=== PATIENT | male | born 1940 | race Caucasian/White ===

== ENCOUNTER 2022-01-21 08:57 | Emergency (ER) | payer MEDICARE, OTHER ==
--- NOTE | 2022-01-21 08:59 | ERPHSYRPT ---
- History of Present Illness Time Seen by Provider: 01/21/22 08:59 Source: patient, family Exam Limitations: no limitations Physician History: This is an 82-year-old white male patient that denies smoking history who states that there is something in his throat on the right side that is causing him pain. The pain is worse when he is swallowing either liquids or solid foods. Onset was a couple days ago. He has had no difficulty breathing. He does have control of his airway. Patient has a history of elevated cholesterol, hypertension, arthritis and gastroesophageal reflux disease. Timing/Duration: persistent, days (2) Severity: moderate ENT Location: throat Modifying Factors: Improves With: other (Worse with swallowing) Associated Symptoms: difficulty swallowing (Not too difficult swallowing but has painful swallowing), No drooling, No ear drainage, No hearing loss, No voice change Allergies/Adverse Reactions: acetaminophen [From Vicodin] Allergy (Verified 01/21/22 09:02) hydrocodone bitartrate [From Vicodin] Allergy (Verified 01/21/22 09:02) Home Medications: Aspirin 81 mg PO DAILY 09/19/14 [History] Metformin HCl 500 mg [Glucophage 500 MG] 500 mg PO BID 09/19/14 [History] Alendronate Sodium 70 mg [Fosamax 70 MG] 70 mg PO WEEKLY 08/12/20 [History] Ergocalciferol (Vitamin D2) [Vitamin D2] 1,250 mcg PO HS 08/12/20 [History] Folic Acid 1 mg [Folate 1 mg] 1 mg PO DAILY 08/12/20 [History] Hydrocodone/Acetaminophen [Hydrocodon-Acetaminophen 5-325] 1 each PO Q4-6HPRN PRN 08/12/20 [History] Losartan Potassium 100 mg PO DAILY 08/12/20 [History] Methotrexate Sodium/Pf [Methotrexate 25 mg/ml Vial] 25 mg IJ WEEKLY 08/12/20 [History] Metoprolol Succinate 12.5 mg PO BID 08/12/20 [History] Omeprazole 40 mg PO DAILY PRN PRN 08/12/20 [History] Prednisone 20 mg [Deltasone 20 mg] 20 mg PO DAILY 08/12/20 [History] Rosuvastatin Calcium 20 mg PO DAILY 01/20/21 [History] Travel Risk - International Travel Have you traveled outside of the country in past 3 weeks: No - Coronavirus Screening Are you exhibiting any of the following symptoms?: No Close contact with a COVID-19 positive Pt in past 14-21 Days: No - Review of Systems Constitutional: No Symptoms Eyes: No Symptoms Ears, Nose, & Throat: Throat Pain, Painful Swallowing, No Hoarse, No Snoring Respiratory: No Symptoms Cardiac: No Symptoms Abdominal/Gastrointestinal: No Symptoms Genitourinary Symptoms: No Symptoms Musculoskeletal: No Symptoms Skin: No Symptoms Neurological: No Symptoms Psychological: No Symptoms Endocrine: No Symptoms Hematologic/Lymphatic: No Symptoms Immunological/Allergic: No Symptoms All Other Systems: Reviewed and Negative - Past Medical History Pertinent Past Medical History: Yes Neurological History: No Pertinent History ENT History: No Pertinent History Cardiac History: Hypertension Respiratory History: No Pertinent History Endocrine Medical History: Diabetes Type II Musculoskeletal History: No Pertinent History GI Medical History: Gallbladder Disease History: No Pertinent History Psycho-Social History: No Pertinent History Male Reproductive Disorders: No Pertinent History - Past Surgical History Past Surgical History: Yes Neuro Surgical History: No Pertinent History Cardiac: Cardiac Catheterization Respiratory: No Pertinent History Gastrointestinal: Other Genitourinary: No Pertinent History Musculoskeletal: No Pertinent History, Other Male Surgical History: No Pertinent History Other Surgical History: hx fractured left hip and pelvis with screws,colonoscopyx2 - Social History Smoking Status: Former smoker Exposure to second hand smoke: No Drug Use: none - Nursing Vital Signs Nursing Vital Signs: Initial Vital Signs Temperature 98.9 F 01/21/22 09:03 Pulse Rate 84 01/21/22 09:03 Respiratory Rate 18 01/21/22 09:03 Blood Pressure 160/85 01/21/22 09:03 O2 Sat by Pulse Oximetry 96 01/21/22 09:03 Pain Scale Pain Intensity 0 - Physical Exam General Appearance: no apparent distress, alert Eye Exam: bilateral eye: normal inspection, PERRL, EOMI Ear Exam: bilateral ear: auricle normal, canal normal, TM normal Nasal Exam: normal inspection Throat Exam: moist mucus membranes, pharynx swelling, pharynx tenderness (With redness and fibrinous exudate right side worse than left), uvula swelling, No dental tenderness, No excessive drooling Neck Exam: normal inspection, non-tender, supple, full range of motion, trachea midline Cardiovascular/Respiratory Exam: chest non-tender, normal breath sounds, regular rate/rhythm, heart sounds normal, no ecchymosis, no JVD, no respiratory distress, normal peripheral pulses, No subcutaneous emphysema Abdominal Exam: non-tender Neurologic Exam: alert, oriented x 3, cooperative, 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, normal mood/affect, nml cerebellar function, nml station & gait, sensation nml Skin Exam: normal color, warm, dry SpO2 Interpretation: normal O2 Delivery: Room Air - Course Nursing assessment & vital signs reviewed: Yes Ordered Tests: Active Orders 24 hr Category Date Time Status NECK WO CONTRAST [CT] Stat Exams 01/21/22 09:19 Completed Medication Summary Discontinued Medications Generic Name Dose Route Start Last Admin Trade Name Freq PRN Reason Stop Dose Admin Hydrocodone Bitart/Acetaminophen 10 ml 01/21/22 10:21 Hydrocodone/Acetaminophen 5 Ml Udcup PO 01/21/22 10:22 STAT STA Hydrocodone Bitart/Acetaminophen Confirm 01/21/22 10:34 Hydrocodone/Acetaminophen 5 Ml Udcup Administered 01/21/22 10:35 Dose 10 ml .ROUTE .STK-MED ONE Ceftriaxone Sodium 1,000 mg 01/21/22 10:21 01/21/22 10:40 Ceftriaxone Sodium 1000 Mg Inj Vial IM 01/21/22 10:22 1,000 mg STAT ONE Administration Ceftriaxone Sodium Confirm 01/21/22 10:34 Ceftriaxone Sodium 1000 Mg Inj Vial Administered 01/21/22 10:35 Dose 1,000 mg .ROUTE .STK-MED ONE Methylprednisolone Sodium 0 mg 01/21/22 10:21 01/21/22 10:40 Succinate 125 mg/ Sterile IM 01/21/22 10:22 125 mg Water 2 ml STAT ONE Administration Diphenhydramine HCl Confirm 01/21/22 10:50 Diphenhydramine Hcl 50 Mg/Ml Vial Administered 01/21/22 10:51 Dose 50 mg .ROUTE .STK-MED ONE Methylprednisolone Sodium Succinate Confirm 01/21/22 10:34 Methylprednis Sod Succ 125 Mg/2 Ml Vial Administered 01/21/22 10:35 Dose 125 mg .ROUTE .STK-MED ONE Sterile Water Confirm 01/21/22 10:34 Water For Injection,Sterile 10 Ml Vial Administered 01/21/22 10:35 Dose 10 ml IJ .STK-MED ONE Lab/Rad Data: Laboratory Results 01/21/22 01/21/22 Range/Units 09:29 09:29 Influenza Type A Ag NEGATIVE (NEGATIVE) Influenza Type B Ag NEGATIVE (NEGATIVE) RSV (PCR) NEGATIVE (Negative) SARS-CoV-2 (PCR) NEGATIVE (NEGATIVE) Group A Strep Antibody NOT DETECTED (NEGATIVE) - Progress Progress: improved, pain not gone completely, re-examined Progress Note: 01/21/22 10:22 40 years ago the patient had Vicodin and had a reaction that was a rash and they attributed it to the Vicodin. However, since that time patient has had hydrocodone/acetaminophen combination without any side effects or allergic reactions. 01/21/22 11:06 Patient just took 5 cc of liquid hydrocodone/acetaminophen. He feels as though it went down the trachea rather than the esophagus. He began coughing. He is now improved. His oxygen saturations are now significantly improved and he is coughing less often. There is no evidence of rash. There is no stridor and there is no wheezing present. Medical decision making: This patient underwent a CT scan without contrast of the neck/soft tissue of the neck and it shows moderate asymmetric soft tissue prominence/swelling within the right posterior oropharynx GL region near the tonsillar pillar. This prominence is either soft tissue swelling from infection versus an underlying mass. It is difficult to tell from this study. We will observe the patient a little longer in the emergency department and in the meantime attempt to obtain an ENT appointment for him. Counseled pt/family regarding: lab results, diagnosis, need for follow-up, rad results - Departure Clinical Impression: Pharyngitis, Oropharyngeal dysphagia Condition: Stable Critical Care Time: No Referrals: ASPEN QUIJANO MD [Primary Care Provider] - Follow up/PCP as directed Additional Instructions: Drink plenty of cool liquids. Take your medication as prescribed. Follow-up with your primary care physician and search manager for further evaluation and management. Return to emergency room if symptoms worsen. Prescriptions: Hydrocodone/APAP 5/325 [[place] 5/325 mg] 1 each PO Q8H PRN PRN #8 tablet MDD 3 PRN Reason: Pain Prednisone 10 mg [Deltasone 10 mg] 10 mg PO TID #12 tablet Azithromycin 250 mg [Zithromax 250 MG TABLET] 250 mg PO ZPACK #6 tablet
[2022-01-21 10:11] LABS: INFLUENZA A NEGATIVE (NEGATIVE); INFLUENZA B NEGATIVE (NEGATIVE); RESPIRATORY SYNCTIAL VIRUS NEGATIVE (Negative); SARS-CoV-2 Xpert Express NEGATIVE (NEGATIVE)
[2022-01-21] MEDS ORDERED: solu-MEDROL 125 MG, Sterile H2O 10 ml 2 ML IM ONE ×2 (10:21)
[2022-01-21] MEDS ORDERED: Rocephin 1000 MG INJ IM ONE (10:21)
[2022-01-21] MEDS ORDERED: Sterile H2O 10 ml IJ ONE (10:34)
[2022-01-21] MEDS ORDERED: HYDROCODONE-ACETAMIN 2.5-108/5 ML SOLUTION ONE (10:34)
[2022-01-21] MEDS ORDERED: Rocephin 1000 MG INJ ONE (10:34)
[2022-01-21] MEDS ORDERED: solu-MEDROL ONE (10:34)
[2022-01-21] MEDS: HYDROCODONE-ACETAMIN 2.5-108/5 ML SOLUTION PO STA ×2 (10:40→10:58)
--- NOTE | 2022-01-21 10:47 | XRAY ---
Exam: CT of the neck without IV contrast from 01/21/2022. CTDI: 16.43 mGy Comparison: [None.] Indication: 82-year-old male with right posterior pharyngeal pain for 2 days, redness, swelling, and fibrinous exudate; evaluate for abscess, mass. Technique: Non-IV contrast axial images were obtained from the level of the superior mediastinum up to the mid orbits. Reconstructed coronal and sagittal images were created and reviewed. Findings: The study is limited without the use of IV contrast. Some artifactual streaking is seen within the oral cavity due to dental amalgam on the right. I note moderate to marked asymmetric nonspecific soft tissue swelling within the posterior oropharynx on the right as compared to the left side. For example, see axial images #27 through #35. Region of interest measurement within this asymmetric soft tissue is +35.6 Hounsfield units. I do not detect a definite low attenuation abscess cavity within this site. Differentiation between marked right-sided posterior oropharynx soft tissue swelling and an isoattenuated mass is extremely difficult without the use of IV contrast. Both remain possibilities. I note some small level II cervical lymph nodes, likely reactive. No definite abnormal cervical lymphadenopathy is seen. The prevertebral soft tissues appear normal. The epiglottis is unremarkable. The posterior nasopharynx appears unremarkable. The aryepiglottic folds and region of the vocal cords appear unremarkable. The thyroid gland enhances uniformly without nodule. Atherosclerotic vascular calcification is seen within the carotid arteries, most prominent at the bifurcations. There is some nasal septal deviation toward the left. The visualized paranasal sinuses are clear except for scant mucosal thickening within the right maxillary sinus. The mastoid air cells are clear. I believe there are some centrilobular emphysematous changes within the lung apices. 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 I see no cervical spine compression fracture or AP traumatic subluxation. There is slight convexity of the lower cervical spine toward the left centered at C5-C6. Impression: 1. There is at least moderate asymmetric soft tissue prominence/swelling within the posterior right oropharynx near the tonsillar pillar. Further assessment is limited without IV contrast, although I see no definite fluid-filled collection within this soft tissue density. Differentiation between pronounced soft tissue swelling and underlying mass at this level is problematic, particularly without IV contrast. The remainder of the cervical airway appears unremarkable. 2. Other incidental findings are seen, as discussed above.
[2022-01-21] MEDS ORDERED: BENADRYL 50 MG/ML ONE (10:50)
[2022-01-21 11:12] VITALS: BP 165/89; PULSE 97; O2SAT 98
[2022-01-22] MEDS ORDERED: CEPACOL SORE THROAT LOZENGE PO SCH (10:00)
== END 2022-01-21 12:08 | disposition home or self-care (01) ==
LOC: ED 08:57
DX: J02.9 Acute pharyngitis, unspecified (principal); R13.12 Dysphagia, oropharyngeal phase; E78.5 Hyperlipidemia, unspecified; I10 Essential (primary) hypertension; E11.9 Type 2 diabetes mellitus without complications; Z79.84 Long term (current) use of oral hypoglycemic drugs; Z79.891 Long term (current) use of opiate analgesic; Z79.899 Other long term (current) drug therapy; Z79.52 Long term (current) use of systemic steroids; Z20.828 Contact with and (suspected) exposure to other viral communicable diseases
CPT/HCPCS: 0241U; 70490; 87651; 96372; 99284; J0696; J1200; J2930; A9270-GY

== ENCOUNTER 2023-11-25 20:30 | Emergency (ER) | payer MEDICARE, OTHER ==
--- NOTE | 2023-11-25 20:43 | ERPHSYRPT ---
- History of Present Illness Time Seen by Provider: 11/25/23 20:43 Historian: patient, family Exam Limitations: no limitations Physician History: This is a diabetic 83-year-old white male patient who presents with vomiting and no abdominal pain that began last evening. Per patient's report, she states his blood sugars normally in the 120-160 range. However last evening the blood sugar was 300. No other individuals that the patient is exposed to or eaten the same foods as this patient, have similar symptoms. Patient denies chest pain. Patient denies shortness of breath. Patient has not had a fever or cough. Patient does not have abdominal pain. Patient has a history of diabetes, hyperlipidemia and hypertension Timing/Duration: yesterday Activities at Onset: none Quality: other (No abdominal pain) Severity of Pain-Max: none Severity of Pain-Current: none Modifying Factors: Improves With: vomiting Associated Symptoms: vomiting, weakness Previous symptoms: no prior history, no recent treatment Allergies/Adverse Reactions: acetaminophen [From Vicodin] Allergy (Verified 11/25/23 20:58) hydrocodone bitartrate [From Vicodin] Allergy (Verified 11/25/23 20:58) Home Medications: Aspirin 81 mg PO DAILY 09/19/14 [History] Folic Acid 1 mg [Folate 1 mg] 1 mg PO DAILY 08/12/20 [History] Metoprolol Succinate 25 mg PO BID 08/12/20 [History] Rosuvastatin Calcium 20 mg PO DAILY 08/12/20 [History] Amlodipine Besylate 5 mg [Norvasc 5 mg] 10 mg PO DAILY 10/20/23 [History] Empagliflozin [Jardiance] 10 mg PO DAILY 10/20/23 [History] Gabapentin [Neurontin ] 300 mg PO BID 10/20/23 [History] Tadalafil [Cialis] 10 mg PO DAILY 10/20/23 [History] Losartan Potassium 100 mg PO DAILY 11/25/23 [History] Hx Influenza Vaccination/Date Given: Yes Hx Pneumococcal Vaccination/Date Given: Yes Travel Risk - International Travel Have you traveled outside of the country in past 3 weeks: No - Emerging Infectious Disease Are you exhibiting symptoms associated with any current EIDs: Yes Symptoms: Vomitting - Review of Systems Constitutional: Weakness Eyes: No Symptoms Ears, Nose, & Throat: No Symptoms Respiratory: No Symptoms Cardiac: No Symptoms Abdominal/Gastrointestinal: Nausea, Vomiting, Appetite Changes Genitourinary Symptoms: No Symptoms Musculoskeletal: No Symptoms Skin: No Symptoms Neurological: No Symptoms Psychological: No Symptoms Endocrine: No Symptoms Hematologic/Lymphatic: No Symptoms Immunological/Allergic: No Symptoms All Other Systems: Reviewed and Negative - Past Medical History Pertinent Past Medical History: Yes Neurological History: No Pertinent History ENT History: No Pertinent History Cardiac History: No Pertinent History, Hypertension Respiratory History: No Pertinent History Endocrine Medical History: Diabetes Type II Musculoskeletal History: Osteoarthritis GI Medical History: Gallbladder Disease History: No Pertinent History Psycho-Social History: No Pertinent History Male Reproductive Disorders: No Pertinent History Other Medical History: PATIENT SEES DR. ROBLEDO FOR HIS HEART, NOTES IT IS HEALTHY. HE HAS HAD INCREASED BP. TRACTOR RAN OVER PATIENT AND FRACTURED L HIP. - Past Surgical History Past Surgical History: Yes Neuro Surgical History: No Pertinent History Cardiac: Cardiac Catheterization Respiratory: No Pertinent History Gastrointestinal: Other Genitourinary: No Pertinent History Musculoskeletal: No Pertinent History, Other Male Surgical History: No Pertinent History Other Surgical History: hx fractured left hip and pelvis with screws,colonoscopyx2 - Social History Smoking Status: Former smoker Exposure to second hand smoke: No Drug Use: none Patient Lives Alone: No - Nursing Vital Signs Nursing Vital Signs: Initial Vital Signs Temperature 97.8 F 11/25/23 20:50 Pulse Rate 70 11/25/23 20:50 Respiratory Rate 16 11/25/23 20:50 Blood Pressure 161/76 11/25/23 20:50 O2 Sat by Pulse Oximetry 93 L 11/25/23 20:50 Pain Scale Pain Intensity 0 - Physical Exam General Appearance: no apparent distress, alert, thin Eye Exam: PERRL/EOMI, eyes nml inspection Ears, Nose, Throat Exam: dry mucous membranes Neck Exam: normal inspection, non-tender, supple, full range of motion Respiratory Exam: normal breath sounds, lungs clear, airway intact, No chest tenderness, No respiratory distress Cardiovascular Exam: regular rate/rhythm, normal heart sounds, normal peripheral pulses Gastrointestinal/Abdomen Exam: soft, normal bowel sounds, No tenderness Rectal Exam: not done Back Exam: normal inspection, normal range of motion, No CVA tenderness, No vertebral tenderness Extremity Exam: normal inspection, normal range of motion, pelvis stable Neurologic Exam: alert, oriented x 3, cooperative, shaping machine tender II-XII nml as tested, normal mood/affect, nml cerebellar function, nml station & gait, sensation nml Skin Exam: normal color, warm, dry Lymphatic Exam: No adenopathy SpO2 Interpretation: normal O2 Delivery: Room Air - Course Nursing assessment & vital signs reviewed: Yes EKG Interpreted by Me: RATE (69), Sinus Rhythm, NORMAL AXIS, NORMAL INTERVALS, Right Bundle Branch Block, Other (No acute ischemic changes on today's twelve- lead EKG. There are no changes on today's EKG when compared to the twelve-lead EKG that was performed on 08/11/2020) Ordered Tests: Active Orders 24 hr Category Date Time Status EKG-ER Only STAT Care 11/25/23 21:19 Active IV Insertion STAT Care 11/25/23 21:17 Active ABDOMEN AND PELVIS W CONTRAST [CT] Stat Exams 11/25/23 23:15 Completed ABDOMEN AND PELVIS W/0 CONTRAS [CT] Stat Exams 11/25/23 21:17 Completed AMYLASE Stat Lab 11/25/23 21:50 Completed CBC W DIFF Stat Lab 11/25/23 21:50 Completed CMP Stat Lab 11/25/23 21:50 Completed LIPASE Stat Lab 11/25/23 21:50 Completed MONO SCREEN Stat Lab 11/25/23 21:26 Completed TROPONIN Q4H Lab 11/25/23 21:50 Completed TROPONIN Q4H Lab 11/26/23 02:02 Completed TROPONIN Q4H Lab 11/26/23 05:30 Ordered UA W/RFX UR CULTURE Stat Lab 11/25/23 21:26 Completed Medication Summary Discontinued Medications Generic Name Dose Route Start Last Admin Trade Name Connorq PRN Reason Stop Dose Admin Sodium Chloride 1,000 mls @ 250 mls/hr 11/25/23 21:30 11/26/23 01:50 Sodium Chloride 0.9% 1000 Ml IV 12/25/23 21:29 Not Given .Q4H BHAVESH Lactated Ringer's 1,000 mls @ 999 mls/hr 11/25/23 22:35 11/26/23 00:03 Lactated Ringers IV 11/25/23 23:35 Infused .Q1H1M ONE Infusion Lactated Ringer's Confirm 11/25/23 22:51 Lactated Ringers Administered 11/25/23 22:52 Dose 1,000 mls @ ud IV .STK-MED ONE Sodium Chloride Confirm 11/25/23 21:24 Sodium Chloride 0.9% 1000 Ml Administered 11/25/23 21:25 Dose 1,000 mls @ ud .ROUTE .STK-MED ONE Ondansetron HCl 4 mg 11/25/23 21:17 11/25/23 21:24 Ondansetron Hcl 4 Mg/2 Ml Vial IV 11/25/23 21:18 4 mg STAT ONE Administration Ondansetron HCl Confirm 11/25/23 21:23 Ondansetron Hcl 4 Mg/2 Ml Vial Administered 11/25/23 21:24 Dose 4 mg .ROUTE .STK-MED ONE Pantoprazole Sodium 40 mg 11/25/23 21:17 11/25/23 21:24 Pantoprazole 40 Mg Vial IV 11/25/23 21:18 40 mg STAT ONE Administration Pantoprazole Sodium Confirm 11/25/23 21:24 Pantoprazole 40 Mg Vial Administered 11/25/23 21:25 Dose 40 mg IV .STK-MED ONE Lab/Rad Data: Laboratory Result Diagrams 11/25/23 21:50 11/25/23 21:50 Laboratory Results 11/26/23 11/25/23 11/25/23 Range/Units 02:02 21:50 21:50 WBC (4.0-10.5) x10^3/uL RBC (4.1-5.6) x10^6/uL Hgb (12.5-18.0) g/dL Hct (42-50) % MCV (78-100) fL MCH (26-32) pg MCHC (32-36) g/dL RDW (11.5-14.0) % Plt Count (150-450) x10^3/uL MPV (7.5-11.0) fL Gran % (36.0-66.0) % Immature Gran % (Auto) (0.00-0.4) % Nucleat RBC Rel Count (0.00-0.1) % Eos # (Auto) (0-0.5) x10^3/uL Immature Gran # (Auto) (0.00-0.03) x10^3u/L Absolute Lymphs (auto) (1.0-4.6) x10^3/uL Absolute Monos (auto) (0.0-1.3) x10^3/uL Absolute Nucleated RBC (0.00-0.01) x10^3u/L Lymphocytes % (24.0-44.0) % Monocytes % (0.0-12.0) % Eosinophils % (0.00-5.0) % Basophils % (0.0-0.4) % Absolute Granulocytes (1.4-6.9) x10^3/uL Basophils # (0-0.4) x10^3/uL Sodium 137 (135-145) mmol/L Potassium 4.3 (3.5-5.1) mmol/L Chloride 105 (98-107) mmol/L Carbon Dioxide 18 L (22-30) mmol/L Anion Gap 17.8 H (5-15) MEQ/L BUN 35 H (9-20) mg/dL Creatinine 1.29 H (0.66-1.25) mg/dL Estimated GFR 55.7 ML/MIN Glucose 115 H (74-106) mg/dL Calcium 8.7 (8.4-10.2) mg/dL Total Bilirubin 0.60 (0.2-1.3) mg/dL AST 102 H (17-59) U/L ALT 64 H (0-50) U/L Alkaline Phosphatase 49 (38-126) U/L Troponin I < 0.012 < 0.012 (0.000-0.033) ng/mL Serum Total Protein 8.5 H (6.3-8.2) g/dL Albumin 4.0 (3.5-5.0) g/dL Amylase 142 H (30-110) U/L Lipase 193 (23-300) U/L Urine Color (Yellow) Urine Appearance (Clear) Urine pH (4.6-8.0) Ur Specific Shell[place] (1.005-1.030) Urine Protein (Negative) Urine Glucose (UA) (Negative) mg/dL Urine Ketones (Negative) Urine Blood (Negative) Urine Nitrite (Negative) Urine Bilirubin (Negative) Urine Urobilinogen (0.2) mg/dL Ur Leukocyte Esterase (Negative) U Hyaline Cast (Auto) (0-2) /LPF Urine Microscopic RBC (0-5) /HPF Urine Microscopic WBC (0-5) /HPF Ur Epithelial Cells (None Seen) /HPF Urine Bacteria (None Seen) /HPF Urine Culture Reflexed (NO) Monoscreen (NEGATIVE) Influenza Type A Ag (NEGATIVE) Influenza Type B Ag (NEGATIVE) RSV (PCR) (NEGATIVE) SARS-CoV-2 (PCR) (NEGATIVE) 11/25/23 11/25/23 11/25/23 Range/Units 21:50 21:26 21:26 WBC 7.7 (4.0-10.5) x10^3/uL RBC 5.47 (4.1-5.6) x10^6/uL Hgb 13.4 (12.5-18.0) g/dL Hct 43.4 (42-50) % MCV 79.3 (78-100) fL MCH 24.5 L (26-32) pg MCHC 30.9 L (32-36) g/dL RDW 18.4 H (11.5-14.0) % Plt Count 211 (150-450) x10^3/uL MPV 10.0 (7.5-11.0) fL Gran % 75.1 H (36.0-66.0) % Immature Gran % (Auto) 0.4 (0.00-0.4) % Nucleat RBC Rel Count 0.0 (0.00-0.1) % Eos # (Auto) 0.06 (0-0.5) x10^3/uL Immature Gran # (Auto) 0.03 (0.00-0.03) x10^3u/L Absolute Lymphs (auto) 1.22 (1.0-4.6) x10^3/uL Absolute Monos (auto) 0.57 (0.0-1.3) x10^3/uL Absolute Nucleated RBC 0.00 (0.00-0.01) x10^3u/L Lymphocytes % 15.8 L (24.0-44.0) % Monocytes % 7.4 (0.0-12.0) % Eosinophils % 0.8 (0.00-5.0) % Basophils % 0.5 (0.0-0.4) % Absolute Granulocytes 5.82 (1.4-6.9) x10^3/uL Basophils # 0.04 (0-0.4) x10^3/uL Sodium (135-145) mmol/L Potassium (3.5-5.1) mmol/L Chloride (98-107) mmol/L Carbon Dioxide (22-30) mmol/L Anion Gap (5-15) MEQ/L BUN (9-20) mg/dL Creatinine (0.66-1.25) mg/dL Estimated GFR ML/MIN Glucose (74-106) mg/dL Calcium (8.4-10.2) mg/dL Total Bilirubin (0.2-1.3) mg/dL AST (17-59) U/L ALT (0-50) U/L Alkaline Phosphatase (38-126) U/L Troponin I (0.000-0.033) ng/mL Serum Total Protein (6.3-8.2) g/dL Albumin (3.5-5.0) g/dL Amylase (30-110) U/L Lipase (23-300) U/L Urine Color (Yellow) Urine Appearance (Clear) Urine pH (4.6-8.0) Ur Specific Shell[place] (1.005-1.030) Urine Protein (Negative) Urine Glucose (UA) (Negative) mg/dL Urine Ketones (Negative) Urine Blood (Negative) Urine Nitrite (Negative) Urine Bilirubin (Negative) Urine Urobilinogen (0.2) mg/dL Ur Leukocyte Esterase (Negative) U Hyaline Cast (Auto) (0-2) /LPF Urine Microscopic RBC (0-5) /HPF Urine Microscopic WBC (0-5) /HPF Ur Epithelial Cells (None Seen) /HPF Urine Bacteria (None Seen) /HPF Urine Culture Reflexed (NO) Monoscreen NEGATIVE (NEGATIVE) Influenza Type A Ag NEGATIVE (NEGATIVE) Influenza Type B Ag NEGATIVE (NEGATIVE) RSV (PCR) NEGATIVE (NEGATIVE) SARS-CoV-2 (PCR) NEGATIVE (NEGATIVE) 11/25/23 Range/Units 21:26 WBC (4.0-10.5) x10^3/uL RBC (4.1-5.6) x10^6/uL Hgb (12.5-18.0) g/dL Hct (42-50) % MCV (78-100) fL MCH (26-32) pg MCHC (32-36) g/dL RDW (11.5-14.0) % Plt Count (150-450) x10^3/uL MPV (7.5-11.0) fL Gran % (36.0-66.0) % Immature Gran % (Auto) (0.00-0.4) % Nucleat RBC Rel Count (0.00-0.1) % Eos # (Auto) (0-0.5) x10^3/uL Immature Gran # (Auto) (0.00-0.03) x10^3u/L Absolute Lymphs (auto) (1.0-4.6) x10^3/uL Absolute Monos (auto) (0.0-1.3) x10^3/uL Absolute Nucleated RBC (0.00-0.01) x10^3u/L Lymphocytes % (24.0-44.0) % Monocytes % (0.0-12.0) % Eosinophils % (0.00-5.0) % Basophils % (0.0-0.4) % Absolute Granulocytes (1.4-6.9) x10^3/uL Basophils # (0-0.4) x10^3/uL Sodium (135-145) mmol/L Potassium (3.5-5.1) mmol/L Chloride (98-107) mmol/L Carbon Dioxide (22-30) mmol/L Anion Gap (5-15) MEQ/L BUN (9-20) mg/dL Creatinine (0.66-1.25) mg/dL Estimated GFR ML/MIN Glucose (74-106) mg/dL Calcium (8.4-10.2) mg/dL Total Bilirubin (0.2-1.3) mg/dL AST (17-59) U/L ALT (0-50) U/L Alkaline Phosphatase (38-126) U/L Troponin I (0.000-0.033) ng/mL Serum Total Protein (6.3-8.2) g/dL Albumin (3.5-5.0) g/dL Amylase (30-110) U/L Lipase (23-300) U/L Urine Color Yellow (Yellow) Urine Appearance Clear (Clear) Urine pH 5.0 (4.6-8.0) Ur Specific Shell[place] >=1.030 A (1.005-1.030) Urine Protein 30 (Negative) Urine Glucose (UA) >=1000 A (Negative) mg/dL Urine Ketones Trace A (Negative) Urine Blood Negative (Negative) Urine Nitrite Negative (Negative) Urine Bilirubin Negative (Negative) Urine Urobilinogen 0.2 (0.2) mg/dL Ur Leukocyte Esterase Negative (Negative) U Hyaline Cast (Auto) 3-5 A (0-2) /LPF Urine Microscopic RBC 3-5 (0-5) /HPF Urine Microscopic WBC 0-2 (0-5) /HPF Ur Epithelial Cells Rare (None Seen) /HPF Urine Bacteria Few A (None Seen) /HPF Urine Culture Reflexed NO (NO) Monoscreen (NEGATIVE) Influenza Type A Ag (NEGATIVE) Influenza Type B Ag (NEGATIVE) RSV (PCR) (NEGATIVE) SARS-CoV-2 (PCR) (NEGATIVE) - Progress Progress: improved, re-examined Progress Note: 11/25/23 22:46 My medical decision making and the assignment of moderate complexity to this patient's medical issue today is based on review of the patient's past medical history, review the patient's medication list, review the patient drug allergy list, history present illness and physical findings on examination. The workup in this patient includes placement of an intravenous line, infusion of normal saline solution, CBC, CMP, amylase, lipase, troponin level, twelve-lead EKG, u rinalysis, infusion of Zofran and Protonix intravenously, viral swabs and monotest as well as CT scan of the abdomen pelvis without contrast. Differential diagnosis includes food poisoning, DKA, dehydration, electrolyte abnormalities, pancreatitis, acute intra-abdominal abnormality 11/25/23 23:16 I interpreted the patient's laboratory data results. The patient has laboratory evidence of at least mild dehydration. No other acute, emergent findings based on the laboratory data results are present. CT scan of the abdomen pelvis was performed without contrast and interpreted by the radiologist. There are a few air-fluid levels seen in the right abdomen without definite signs to suggest acute obstruction. The radiologist recommends repeat CT scan with IV and oral contrast. There is evidence of prostamegaly and uncomplicated diverticulosis. I will discuss with the patient about repeating a CT scan with IV and oral contrast. 11/26/23 02:52 CT scan of the abdomen pelvis with IV and oral contrast was interpreted by the radiologist. There is no evidence for small bowel obstruction. There is colonic diverticulosis without diverticulitis. The prostate is enlarged. There is no free air or free fluid present Counseled pt/family regarding: lab results, diagnosis, need for follow-up, rad results Medical Desision Making - Independent Historian Additional History obtained from: Spouse - Diagnostic Testing Diagnostic test were ordered, analyzed, and reviewed by me: Yes Radiological Interpretation: Reviewed by me, Teleradiologist Report - Risk of complications The pt has a mod risk of morbidity or mortality based on: Need for prescription drug management - Departure Departure Disposition: Home Clinical Impression: Vomiting Condition: Stable Critical Care Time: No Referrals: ASPEN QUIJANO MD [Primary Care Provider] - Follow up/PCP as directed Additional Instructions: Drink plenty of clear liquids before advancing your diet. Avoid fatty greasy spicy foods. Call your primary care provider on 11/27/2023 to make arranges for follow-up appointment for further evaluation management. Continue your medications as prescribed. Prescriptions: Ondansetron ODT 4 MG [Zofran Odt 4 mg] 4 mg PO Q6H PRN PRN #10 tablet PRN Reason: Vomiting
[2023-11-25 21:15] VITALS: RESP 16; TEMP 97.8
[2023-11-25] MEDS ORDERED: Zofran 4 MG/2 ML VIAL ONE (21:23)
[2023-11-25] MEDS ORDERED: Sodium Chloride 0.9% 1000 ML 1,000 ML ONE (21:24)
[2023-11-25] MEDS: Zofran 4 MG/2 ML VIAL IV ONE (21:24)
[2023-11-25] MEDS ORDERED: PROTONIX 40 MG IV IV ONE (21:24)
[2023-11-25] MEDS: PROTONIX 40 MG IV IV ONE (21:24)
[2023-11-25] MEDS: Sodium Chloride 0.9% 1000 ML 1,000 ML IV SCH (21:25)
[2023-11-25 21:54] LABS: Absolute Neutrophil Ct (ANC) 5.82 x10^3/uL (1.4-6.9); BASOPHIL % 0.5 % (0.0-0.4); Basophil (Absolute #) 0.04 x10^3/uL (0-0.4); Eosinophil % 0.8 % (0.00-5.0); Eosinophil (Absolute #) 0.06 x10^3/uL (0-0.5); Hematocrit 43.4 % (42-50); Hemoglobin 13.4 g/dL (12.5-18.0); IMMATURE GRAN # 0.03 x10^3u/L (0.00-0.03); IMMATURE GRAN % 0.4 % (0.00-0.4); Lymphocyte (Absolute #) 1.22 x10^3/uL (1.0-4.6); Lymphocytes % 15.8 % (24.0-44.0); Mean Cell Volume 79.3 fL (78-100); Mean Corpuscular Hemoglobin 24.5 pg (26-32); Mean Corpuscular Hgb Concent. 30.9 g/dL (32-36); Monocyte (Absolute #) 0.57 x10^3/uL (0.0-1.3); Monocytes % 7.4 % (0.0-12.0); Neutrophil % 75.1 % (36.0-66.0); Platelet Count 211 x10^3/uL (150-450); Red Blood Count 5.47 x10^6/uL (4.1-5.6); Red Cell Distribution Width 18.4 % (11.5-14.0); White Blood Count 7.7 x10^3/uL (4.0-10.5)
[2023-11-25 22:08] LABS: Appearance Clear (Clear); Bacteria Few /HPF (None Seen); Bilirubin Negative (Negative); Blood Negative (Negative); Epithelial Cells Rare /HPF (None Seen); Glucose, Urine >=1000 mg/dL (Negative); Ketones Trace (Negative); Leukocyte Esterase Negative (Negative); Nitrite Negative (Negative); Protein,Urine Dip 30 (Negative); Specific Gravity >=1.030 (1.005-1.030); Urobilinogen 0.2 mg/dL (0.2); WBC 0-2 /HPF (0-5)
[2023-11-25 22:08] LABS: ANION GAP 17.8 MEQ/L (5-15); BILIRUBIN,TOTAL 0.6 mg/dL (0.2-1.3); Calcium 8.7 mg/dL (8.4-10.2); Creatinine 1 1.29 mg/dL (0.66-1.25); EST GLOMERULAR FILTRATION RATE 55.7 ML/MIN; Potassium 4.3 mmol/L (3.5-5.1); Total Protein 8.5 g/dL (6.3-8.2)
[2023-11-25 22:18] LABS: ADD URINE CULTURE? NO (NO)
[2023-11-25 22:30] LABS: INFLUENZA A NEGATIVE (NEGATIVE); INFLUENZA B NEGATIVE (NEGATIVE); RESPIRATORY SYNCTIAL VIRUS NEGATIVE (NEGATIVE); SARS-CoV-2 Xpert Express NEGATIVE (NEGATIVE)
[2023-11-25] MEDS: Lactated Ringers 1,000 ML IV ONE (22:51)
[2023-11-25] MEDS ORDERED: Lactated Ringers 1,000 ML IV ONE (22:51)
--- NOTE | 2023-11-25 23:03 | XRAY ---
CLINICAL HISTORY: Vomiting COMPARISON: None. TECHNIQUE: Multiple axial sections of the abdomen and pelvis were acquired without intravenous contrast administration. Sagittal and coronal reformatted images were obtained. One of the following dose reduction techniques were utilized for this exam: Automated exposure control, adjustment of the mA and/or kV according to patient size, and use of iterative reconstruction. FINDINGS: Please note, that lack of contrast limits the evaluation of organs, vascular structures, and lymph nodes Multifocal areas of subpleural reticulation, fibroatelectasis, and patchy honeycombing are noted as suggestive of interstitial lung abnormality. A 2 mm calcified nodule/granuloma is seen in the right middle lobe. No pleural effusion. Calcified left hilar lymph nodes. Cardiac size is normal. No pericardial effusion. Normal-sized liver. No focal or diffuse abnormality is noted. No intrahepatic duct dilatation is seen. The gallbladder is surgically absent evidenced by clips in the gallbladder fossa. The common bile duct is prominent measuring 9 mm. The unenhanced pancreas and both adrenal glands are normal. There are 2 tiny calcific foci in the spleen, likely granulomata. Otherwise no focal abnormality. Both kidneys are normal in size, location, and axis. No hydronephrosis, cyst, or calculus is seen on either side. The urinary bladder is suboptimally distended. No radiodense calculus. Enlarged prostate gland measuring 5.7 x 5.0 cm. A fluid-distended stomach and distal esophagus are noted. Extensive scattered sigmoid diverticula without evidence of acute diverticulitis. Few air-fluid levels are seen in the right hemiabdomen without definitive acute obstruction or ileus. An appendix is not discretely identified. No evidence of enlarged mesenteric or retroperitoneal lymph nodes. Small fat-containing right inguinal hernia. No fluid-filled free intraperitoneal air is seen. Moderate dextroscoliosis. Left sacroiliac screw fixation. Multilevel moderate thoracolumbar spondylotic degenerative changes. Grade 1 anterolisthesis is seen at L4-L5. Retrolisthesis is seen at L5-S1. IMPRESSION: A few air-fluid levels are seen in the right abdomen without definitive signs to suggest acute bowel obstruction. Recommend follow-up for repeat IV and oral contrast as warranted clinically. Uncomplicated colonic diverticulosis. Prostatomegaly. Bilateral interstitial lung abnormality in the background of emphysema. Spondylolisthesis is seen at L4-L5 and L5-S1. [facility] ER was called at [phone] at 9: 56 PM DEVELOPMENT REP, 11/25/2023 and Ron Hennessy was informed about findings. Electronically Signed by: Dahlia Galvez MD. (11/25/2023 22:59:34 EDT)
--- NOTE | 2023-11-26 02:41 | XRAY ---
CLINICAL HISTORY: vomiting COMPARISON: Dated: 11/25/2023. TECHNIQUE: Axial CT scan of the abdomen and pelvis was performed with IV contrast. Bowel loops are opacified by prior administration of oral contrast. Coronal and sagittal reconstructive images were also obtained. One of the following dose reduction techniques were utilized for this exam: Automated exposure control, adjustment of the mA and/or kV according to patient size, and use of iterative reconstruction. FINDINGS: Still noted multifocal areas of subpleural reticulation, fibroatelectasis, and patchy honeycombing are noted as suggestive of interstitial lung abnormality. A 2 mm calcified nodule/granuloma is seen in the right middle lobe. No pleural effusion. Calcified left hilar lymph nodes. Normal-sized liver. No focal or diffuse abnormality is noted. No intrahepatic duct dilatation is seen. The gallbladder is surgically. The common bile duct is prominent measuring 9 mm. The pancreas and both adrenal glands are normal. There are 2 tiny calcific foci in the spleen, likely granulomata. Otherwise no focal abnormality. Both kidneys are normal in size, location, and axis. No hydronephrosis, cyst, or calculus is seen on either side. Bilateral extra-renal pelves. Unremarkable appearance of the urinary bladder. No radiodense calculus. Enlarged prostate gland. A fluid-distended stomach. A small hiatal hernia is noted. The small bowel appears prominent and fluid-filled. No evidence of obstruction or abnormal mural thickening. Few scattered sigmoid diverticula without CT evidence of acute diverticulitis. An appendix is not discretely identified. No evidence of pathologically enlarged mesenteric or retroperitoneal lymph nodes. Small fat-containing right inguinal hernia. No fluid-filled free intraperitoneal air is seen. 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 Moderate dextroscoliosis. Left sacroiliac screw fixation. Multilevel moderate thoracolumbar spondylotic degenerative changes. Grade 1 anterolisthesis is seen at L4-L5. Retrolisthesis is seen at L5-S1. IMPRESSION: 1. No evidence of small bowel obstruction. Clinical correlation and follow up are advised. 2. Mild colonic diverticulosis without CT evidence of acute diverticulitis. 3. Enlarged prostate. 4. Bilateral interstitial lung disease. 5. Spondylolisthesis is seen at L4-L5 and L5-S1. 6. 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 7. (Unchanged study). Electronically Signed by: Dahlia Galvez MD. (11/26/2023 02:37:53 EDT)
[2023-11-26 03:04] VITALS: BP 144/73; PULSE 64; O2SAT 94
== END 2023-11-26 03:11 | disposition home or self-care (01) ==
LOC: ED 20:30
DX: R11.2 Nausea with vomiting, unspecified (principal); E11.9 Type 2 diabetes mellitus without complications; E78.5 Hyperlipidemia, unspecified; I10 Essential (primary) hypertension; Z79.84 Long term (current) use of oral hypoglycemic drugs; Z79.899 Other long term (current) drug therapy
CPT/HCPCS: 0241U; 36000; 36415; 74176; 74177; 80053; 81001; 82150; 83690; 84484; 85025; 86308; 93005; 96360; 96361; 96374; 99285; J2405

== ENCOUNTER 2023-12-08 07:32 | Day surgery (SDC) | payer MEDICARE, OTHER ==
[~2023-12-08 07:32] MED LIST: BETADINE 5% OPHTHALMIC 30 ML OP ONE; NON-FORMULARY ITEM OP ONE; cefUROXime sodium 0.005 GM in Sodium Chloride Flush 30 ML*** 0.5 ML IJ ONE
[2023-12-08] MEDS ORDERED: Lactated Ringers 1,000 ML IV ONE ×2 (08:20→08:37)
[2023-12-08 09:24] LABS: Calcium 8.8 mg/dL (8.4-10.2); Creatinine 1 1.03 mg/dL (0.66-1.25); Potassium 3.9 mmol/L (3.5-5.1)
[2023-12-08] MEDS ORDERED: Zofran 4 MG/2 ML VIAL IV PRN (10:00)
[2023-12-08] MEDS: TETRACAINE 0.5% STERI-UNIT SOL OP ONE ×2 (10:08→10:40)
[2023-12-08] MEDS: Ak-Dilate OPHTHALMIC*** 1.065 ML, Cyclogyl 1% OPHTH SOL 1.065 ML, GATIFLOXACIN 0.5% OPH... OP ONE (10:12)
[2023-12-08] MEDS: Lactated Ringers 1,000 ML IV SCH (10:12)
[2023-12-08] MEDS ORDERED: Epinephrine Preservative Free 1 MG/ML IJ ONE (11:00)
[2023-12-08] MEDS ORDERED: DIPRIVAN 200 MG/20 ML IV ONE (12:35)
[2023-12-08] MEDS ORDERED: ROBINUL ONE (12:40)
[2023-12-08 12:54] VITALS: RESP 18; TEMP 97.8
[2023-12-08] MEDS: ACETAZOLAMIDE 250 MG TABLET PO ONE (13:09)
[2023-12-08 13:23] VITALS: BP 112/62; PULSE 57; O2SAT 99
== END 2023-12-08 13:31 | disposition home or self-care (01) ==
LOC: SDC 07:32
PROVIDERS: ATTEND Ophthalmology
DX: H25.811 Combined forms of age-related cataract, right eye (principal); I10 Essential (primary) hypertension; E11.9 Type 2 diabetes mellitus without complications
CPT/HCPCS: 36415; 80048; 83036; 93005; 99100; C1780; J0171; J2704; A9270-GY

== ENCOUNTER 2024-01-09 06:17 | Day surgery (SDC) | payer MEDICARE, OTHER ==
[~2024-01-09 06:17] MED LIST changes: +ACETAZOLAMIDE 250 MG TABLET PO ONE; +Ak-Dilate OPHTHALMIC*** 1.065 ML, TROPICAMIDE 1.065 ML, GATIFLOXACIN 0.5% OPHTH DROPS 0... OP ONE; +Lactated Ringers 1,000 ML IV SCH; +NON-FORMULARY ITEM IJ ONE; +TETRACAINE 0.5% STERI-UNIT SOL OP ONE; +Zofran 4 MG/2 ML VIAL IV PRN
[2024-01-09] MEDS ORDERED: Epinephrine Preservative Free 1 MG/ML IJ ONE (06:18)
[2024-01-09] MEDS ORDERED: Lactated Ringers 1,000 ML IV ONE ×3 (06:31→10:26)
[2024-01-09] MEDS: Lactated Ringers 1,000 ML IV SCH (06:34)
[2024-01-09] MEDS: cefUROXime sodium 0.005 GM in Sodium Chloride Flush 30 ML*** 0.5 ML IJ ONE (06:44)
[2024-01-09] MEDS: TETRACAINE 0.5% STERI-UNIT SOL OP ONE ×2 (06:44→06:45)
[2024-01-09] MEDS: NON-FORMULARY ITEM OP ONE (06:44)
[2024-01-09] MEDS: Ak-Dilate OPHTHALMIC*** 1.065 ML, Cyclogyl 1% OPHTH SOL 1.065 ML, GATIFLOXACIN 0.5% OPH... OP ONE (06:44)
[2024-01-09] MEDS: BETADINE 5% OPHTHALMIC 30 ML OP ONE (06:45)
[2024-01-09] MEDS ORDERED: Zofran 4 MG/2 ML VIAL IV PRN (08:00)
[2024-01-09] MEDS ORDERED: Versed 2 MG/2 ML Injection ONE (10:09)
[2024-01-09] MEDS ORDERED: SUBLIMAZE 100 MCG/2 ML ONE (10:09)
[2024-01-09] MEDS ORDERED: DIPRIVAN 200 MG/20 ML IV ONE (10:15)
[2024-01-09 10:38] VITALS: TEMP 98.3
[2024-01-09] MEDS: ACETAZOLAMIDE 250 MG TABLET PO ONE (10:54)
[2024-01-09 10:57] VITALS: RESP 16
[2024-01-09 11:03] VITALS: BP 125/67; PULSE 55; O2SAT 95
== END 2024-01-09 11:15 | disposition home or self-care (01) ==
LOC: SDC 06:17
PROVIDERS: ATTEND Ophthalmology
DX: H25.812 Combined forms of age-related cataract, left eye (principal); E11.9 Type 2 diabetes mellitus without complications
CPT/HCPCS: 82947; C1780; J0171; J2250; J2704; J3010; A9270-GY